=== PATIENT | male | born 1960 | race Caucasian/White ===

== ENCOUNTER → 2018-11-22 | Outpatient (CLI) | payer BC | END | disposition home or self-care (01) | LOC: PLD 07:39 → LAB SHORT 07:39 | DX: D10.39 Benign neoplasm of other parts of mouth (principal) | CPT/HCPCS: 88305 ==

== ENCOUNTER 2020-11-20 15:03 | Emergency (ER) | payer BC ==
[~2020-11-20] VITALS: Ht 170.2 cm; Wt 75.8 kg
== END 2020-11-20 15:37 | disposition home or self-care (01) ==
LOC: ER 15:03
DX: M54.5 Low back pain (principal); F17.220 Nicotine dependence, chewing tobacco, uncomplicated; W10.9XXA Fall (on) (from) unspecified stairs and steps, initial encounter
CPT/HCPCS: 72100; 99283-25